=== PATIENT | female | born 1985 | race American Indian/Alaskan Native ===

== ENCOUNTER 2016-11-01 06:33 | Observation (INO) | payer MEDICAID ==
--- NOTE | 2016-10-30 13:51 | Anesthesia Consultation ---
Anesthesia Consult and Med Hx Date of service: 11/01/16 - Airway Anesthetic Teeth Evaluation: Good ROM Head & Neck: Adequate Mental/Hyoid Distance: Adequate Mallampati Class: Class IV (large tongue, small mouth opening) Intubation Access Assessment: Possibly Difficult - Pulmonary Exam CTA: Yes - Cardiac Exam Cardiac Exam: RRR - Pre-Operative Health Status ASA Pre-Surgery Classification: ASA3 Proposed Anesthetic Plan: General - Pulmonary Hx Asthma: No COPD: No Hx Pneumonia: No - Cardiovascular System Hx Hypertension: Yes (x 2 yrs) - Central Nervous System Hx Seizures: No Hx Psychiatric Problems: Yes - Endocrine Hx Renal Disease: No Hx End Stage Renal Disease: No Hx Non-Insulin Dependent Diabetes: Yes Hx Hypothyroidism: No Hx Hyperthyroidism: No - Hematic Hx Anemia: Yes Hx Sickle Cell Disease: No - Other Systems Hx Alcohol Use: No Hx Cancer: No Hx Obesity: Yes (morbid obesity)
[2016-10-30 14:06] LABS: Basophils % (Auto) 0.3 % (0.0-1.8); Eosinophils % (Auto) 0.7 % (0.0-4.3); Hematocrit 26.2 % (30.3-42.9); Hemoglobin 7.9 gm/dl (10.1-14.3); Mean Corpuscular HGB Conc 30 % (30-34); Mean Corpuscular Volume 73 fl (79-97); Platelet Count 333 K/mm3 (140-440); Red Blood Count 3.57 M/mm3 (3.65-5.03); White Blood Count 6.6 K/mm3 (4.5-11.0)
[2016-10-30 14:10] LABS: Mean Corpuscular Hemoglobin 22 pg (28-32); Red Cell Distribution Width 23.3 % (13.2-15.2)
[2016-10-30 14:36] LABS: Anion Gap 16 mmol/L; BUN/Creatinine Ratio 8.33; Blood Urea Nitrogen 5 mg/dL (7-17); Calcium 8.6 mg/dL (8.4-10.2); Carbon Dioxide 24 mmol/L (22-30); Chloride 99.9 mmol/L (98-107); Glucose 211 mg/dL (65-100); Sodium 136 mmol/L (137-145)
--- NOTE | 2016-10-31 09:07 | Admit Criteria Form ---
Admission Criteria Documentation: AMBULATORY SURGERY EXCEPTION CRITERIA Ambulatory Surgery Exception Criteria ( Place 'X' for any and all applicable criteria): Surgery or procedure performed on ambulatory basis may require inpatient stay for[A] ANY ONE of the following(1)(2)(3)(4)(5)(6)(7)(8)(9): [X] I. A preoperative situation, condition, or finding that warrants inpatient stay as indicated by ANY ONE of the following: [] a) Inpatient care needed because of severity of a disease or condition rather than the surgery (eg, severe cardiac or respiratory disease, severe infection) (15) (16 ) (17) (18) [] b) Emergent procedure (eg, angioplasty for acute ischemia)(19) [] c) Complex surgical approach or situation as indicated by ANY ONE of the following(3): [] i) Open approach needed instead of usual endoscopic, transcatheter, or other less invasive procedure [] ii) Difficult approach because of previous operation [] iii) Airway monitoring required after open neck procedures(20)(21) [] iv) Large mass requiring unusually extensive dissection [] v) Additional complicating feature requiring inpatient care (eg, drain management)(22(23): [X] d) Major surgery in a pt with high anesthetic risk as indicated by ANY ONE of the following (2)(3)(5)(7)(8): [X] i) ASA risk class III or higher (severe systemic disease impairing function) [D] [] ii) Advanced age (eg, older than 85 years)(14)(24) [] iii) Symptomatic heart failure(25) [] iv) Symptomatic asthma or COPD(8)(21) [] v) Morbid obesity with hemodynamic or respiratory problems(20)( 21)(26)(27) [] vi) Obstructive sleep apnea(20)(21) [] vii) Former premature infants who are younger than 60 weeks [] viii) High risk for severe postoperative abnormalities (eg, severe postoperative hypocalcemia after parathyroidectomy for severe hyperparathyroidism)(27)( 28) [] ix) Unstable angina(25) [] e) Drug-related risk requiring inpatient stay as indicated by ANY ONE of the following(5)(10)(14)(32)(33) [] i) Procedure requires discontinuing drugs or other therapy (eg , antiarrhythmic medication, antiseizure medication), which necessitates inpatient observation or treatment.(18)(31) [] ii) Major surgery and high risk drug use as indicated by ANY ONE of the following: [] 1) Active abuse of cocaine or similar drug [] 2) Monoamine oxidase inhibitor use [] 3) Other drug identified as posing risk [] f) Inadequate outpatient care situation as indicated by ANY ONE of the following(5)(10)(14)(32)(33) [] i) Patient lives remote from medical facility and procedure has urgent complication potential, and temporary nearby residence cannot be arranged [] ii) Patient will have postprocedure incapacitation and inadequate assistance at home, or alternative level of care cannot be arranged. [] iii) Patient will have long general anesthesia or procedure side effect resolution time, and competent person to stay with patient on first postoperative night at home or alternative level of care cannot be arranged. []iv) Other inadequate outpatient situation that cannot be handled by other means [] II. A perioperative event, condition, or finding that warrants inpatient stay as indicated by ANY ONE of the following (1)(2)(3): [] a) Inadequate physiologic recovery: cardiovascular, respiratory, or hemodynamic status not normal or near preoperative baseline(18) [] b) Hemodynamic instability [] c) Patient not alert with near normal or baseline mental status [] d) Temperature not normal or as expected and not appropriate for outpatient treatment of condition [] e) Ambulatory or appropriate activity level status not yet achieved post procedure [E](34)(35)(36) [] f) Operative site not appropriate (eg, unexpected or excessive drainage or bleeding) [] g) Postoperative effects not resolved or adequately managed (eg, significant pain or vomiting not appropriate for outpatient or next level of care)(10)(12) [] h) Complicating features requiring inpatient care as indicated by ANY ONE of the following(37): [] i) Severe complications of procedure (eg, bowel injury, airway compromise, vascular injury,severe hemorrhage) [] ii) Extensive (eg, dissection far beyond usual scope of procedure ) or prolonged (eg, 120 minutes beyond usual) surgery needed requiring inpatient postoperative care [] iii) Conversion to an open or complex procedure that requires inpatient care (eg, open vs laparoscopic cholecystectomy, abdominal vs vaginal hysterectomy)(38) [] iv) Comorbid condition or test result identified during or post procedure that requires inpatient care (7) [] v) Malignant hyperthermia(30) [] vi) Other complicating feature requiring inpatient care(22)(23) Inpatient stay may be needed until ALL of the following are present (1)(2)(3)(4) (5)(6)(10)(14)(33)(40): []a) Physiologic recovery: cardiovascular, respiratory, and hemodynamic status normal or near preoperative baseline []b) Hemodynamic stability []c) Patient alert, with near normal or baseline mental status []d) Temperature appropriate: patient afebrile or temperature appropriate for outpt treatment of condition []e) Activity level appropriate: ambulatory or appropriate activity level post procedure []f) Operative site appropriate as indicated by ALL of the following: []i) Site dry or with expected drainage []ii) Any blood noted is as expected for procedure. []g) Postoperative effects resolved or managed as indicated by ALL of the following: []i) Pain management appropriate for outpatient (or next level of) care(10) []ii) Minimal nausea and vomiting: if present, successfully treated with oral medication(12) []iii) Headache, dizziness, or drowsiness (if present) are mild. []h) Voiding status acceptable as indicated by ANY ONE of the following: []i) Voiding spontaneously []ii) No voiding but instructions given for follow-up in 6 to 8 hours []iii) Urinary catheter in place, and instructions given for follow-up []i) Complicating features requiring inpatient care manageable at a lower level of care(37) []j) Comorbid conditions manageable at a lower level of care(37) The original [employer] content created by [employer] has been revised. The portions of the content which have been revised are identified through the use of italic text or in bold, and [facility] [employer] has neither reviewed nor approved the modified material. All other unmodified content is copyright [employer]. Please see references footnoted in the original [employer] edition 2016 Admission Criteria Met: Yes
--- NOTE | 2016-10-31 22:33 | History and Physical Report ---
History of Present Illness Date of examination: 10/30/16 Chief complaint: Dysfunctional uterine bleeding History of present illness: Pt is a 31 year old -I[place] female presents for definitive management of dysfunctional uterine bleeding for the past two years that has failed medical management. It has also caused her to have symptomatic anemia which required 2 units of packed red blood cells preoperatively. Past History Past Medical History: hypertension, diabetes, other (obesity) Past Surgical History: section (2013), D&C ADJUTANT GENERAL History: herpes Family/Genetic History: none Social history: no significant social history, - Obstetrical History : 9 Medications and Allergies Allergies Allergy/AdvReac Type Severity Reaction Status Date / Time iron dextran complex Allergy Severe Anaphylaxis Verified 10/27/16 08:58 morphine Allergy Severe Itching Verified 10/31/16 14:27 Home Medications Medication Instructions Recorded Confirmed Last Taken Type Clonidine HCl [Clonidine HCl] 0.2 mg PO BID 10/27/16 10/27/16 Unknown History Norgestimate-Ethinyl Estradiol 1 tab PO DAILY 10/27/16 10/27/16 Unknown History [Sprintec 28 Day Tablet] Paroxetine HCl [PARoxetine] 40 mg PO DAILY 10/27/16 10/27/16 Unknown History glipiZIDE [Glipizide] 10 mg PO DAILY 10/27/16 10/27/16 Unknown History Active Meds: Active Medications Famotidine (Pepcid) 20 mg IV PREOP NR Stop: 11/01/16 23:59 Sodium Chloride (Nacl 0.9% 1000 Ml) 1,000 mls @ 75 mls/hr IV DIRECT LEONIDES Cefazolin Sodium (Ancef/Sterile Water 2 Gm/20 Ml) 20 mls @ 80 mls/hr IV PREOP LEONIDES PRN Reason: Protocol Midazolam HCl (Versed) 2 mg IV PREOP NR Stop: 11/01/16 23:59 Review of Systems All systems: negative - Vital Signs Vital signs: Vital Signs Temp Pulse Resp BP 97.9 F 80 14 148/88 10/30/16 13:25 10/30/16 13:25 10/30/16 13:25 10/30/16 13:25 Temp Pulse Resp BP Pulse Ox 98.5 F 73 18 188/100 100 10/31/16 18:05 10/31/16 18:05 10/31/16 18:05 10/31/16 18:05 10/31/16 18:05 - Physical Exam Breasts: Positive: deferred Cardiovascular: Regular rate Lungs: Positive: Clear to auscultation Abdomen: Positive: soft (obese) Extremities: Positive: normal Results Result Diagrams: 10/30/16 13:34 10/30/16 13:34 Abnormal lab results 10/30/16 Range/Units 13:34 Crossmatch See Detail All other labs normal. Ultrasound: other (09/19/16- Uterus 12.3x7.2x7.1 cm. Anteverted. Myometrium homogenous. Left ovary not identifiable. Right ovary 3.7x1.9x3.2 cm. No significant or abnormal fluid collections.) Assessment and Plan A: Dysfunctional uterine bleeding Symptomatic anemia - Hemoglobin 7.9 Previous x 1 Diabetes Hypertension Obesity P: Preoperative transfusion of 2 units of packed red blood cells with repeat CBC Proceed with laparoscopic-assisted vaginal hysterectomy, possible bilateral salpingo- oophorectomy and other indicated procedures.
[~2016-11-01 06:33] MED LIST: NACL 0.9% 250ML 250 ML IV ONE; NACL 0.9% 250ML 250 ML ONE; NACL 0.9% 500 ML 500 ML IV ONE; PEPCID IV NR; VERSED IV NR
[2016-11-01] MEDS ORDERED: NACL BACTERIOSTATIC INFILTRATI ONE (06:55)
[2016-11-01] MEDS ORDERED: ANCEF/STERILE WATER 2 GM/20 ML 2 GM/20 ML SYRINGE IV SCH ×2 (07:00→08:00)
[2016-11-01] MEDS: NACL 0.9% 1000 ML 1,000 ML IV SCH ×2 (07:15→23:50)
[2016-11-01 07:29] LABS: Basophils % (Auto) 0.4 % (0.0-1.8); Eosinophils % (Auto) 1.1 % (0.0-4.3); Mean Corpuscular HGB Conc 31 % (30-34); Mean Corpuscular Volume 75 fl (79-97); Platelet Count 283 K/mm3 (140-440); Red Blood Count 4.26 M/mm3 (3.65-5.03); White Blood Count 7.6 K/mm3 (4.5-11.0)
[2016-11-01 07:36] LABS: Mean Corpuscular Hemoglobin 24 pg (28-32); Red Cell Distribution Width 23.9 % (13.2-15.2)
[2016-11-01] MEDS ORDERED: SUBLIMAZE ONE (07:59)
[2016-11-01] MEDS ORDERED: DIPRIVAN 10 MG/ML IV ONE (07:59)
[2016-11-01] MEDS ORDERED: ZEMURON IV ONE ×2 (08:01→09:58)
[2016-11-01] MEDS ORDERED: XYLOCAINE MPF 2% ONE (08:01)
[2016-11-01] MEDS ORDERED: NEO SYNEPHRINE ONE (08:56)
[2016-11-01] MEDS ORDERED: NACL 0.9% 100 ML ONE (08:56)
[2016-11-01] MEDS ORDERED: DILAUDID ONE ×2 (09:02→11:49)
[2016-11-01] MEDS ORDERED: ZOFRAN ONE (09:05)
[2016-11-01] MEDS ORDERED: ROBINUL ONE ×3 (09:05→11:24)
[2016-11-01] MEDS ORDERED: BREVIBLOC IV ONE (09:08)
[2016-11-01] MEDS ORDERED: NORMODYNE IV ONE (09:08)
--- NOTE | 2016-11-01 09:39 | Anesthesia Day of Surgery ---
Anesthesia Day of Surgery - Day of Surgery Patient Examined: Yes Patient H&P Reviewed: Yes Patient is NPO: Yes
[2016-11-01] MEDS ORDERED: ZOFRAN IV PRN ×3 (09:40→15:01)
[2016-11-01] MEDS ORDERED: NACL 0.9% 1000 ML 1,000 ML ONE (09:48)
[2016-11-01] MEDS ORDERED: NACL 0.9% 500 ML 500 ML IV ONE (10:44)
[2016-11-01] MEDS ORDERED: BLOXIVERZ ONE (11:24)
[2016-11-01] MEDS ORDERED: NACL 0.9% IR ONE ×2 (11:50)
[2016-11-01] MEDS ORDERED: MARCAINE 0.5% INFILTRATI ONE (11:50)
--- NOTE | 2016-11-01 12:08 | Post Operative Note ---
Pre-op diagnosis: Dysfunctional Uterine Bleeding Post-op diagnosis: same Findings: 1) 12-14 wks sized anteverted uterus 2) Normal appearing ovaries and tubes 3) Large omental adhesion extending to anterior peritoneum Procedure: 1) Laparoscopic-assisted vaginal hysterectomy, bilateral salpingectomy 2) Lysis of adhesions Anesthesia: ELZA Surgeon: MARCIN CASON Estimated blood loss: other (400 mL) Pathology: list (uterus, cervix, fallopian tubes) Specimen disposition: to lab Condition: stable Disposition: PACU
--- NOTE | 2016-11-01 12:10 | Operative Report ---
Operative Report Operative Report: Date of procedure: November 01, 2016 Preoperative Diagnosis: 1) Dysfunctional Uterine Bleeding causing symptomatic anemia 2)Obesity 3) Diabetes Postoperative diagnosis: Same Surgeon: Kadie Chaudhari MD Tool Room Machinist: Bridget Palafox MD Anesthesia: GETA Procedure: Laparoscopic-assisted vaginal hysterectomy, bilateral salpingectomy, Lysis of omental adhesion Findings: 1) 12-14 wk sized anteverted uterus 2) Normal appearing ovaries and fallopian tubes 3) Large omental adhesion extending to the anterior peritoneum at the level of the umbilicus EBL: 400 mL IVF: 1800 mL Urine output: 1000 mL, clear at the end of the procedure Specimen: Uterus, cervix and bilateral fallopian tubes to pathology Complications: None. Counts correct x 3 Drains: Alaniz to gravity Disposition: Stable to PACU Indication for procedure: Pt is a 31 year old -Somali female who presents for definitive management of dysfunctional uterine bleeding for the past two years that has failed medical management. Operation in detail: After the risks, benefits, alternatives and complications were explained to the patient, she gave informed consent for the procedure. She was subsequently taken to the operating room with her IV noted to be running well and placed in the dorsal supine position. SCDs were noted to be in place and functioning. General anesthesia was then induced without difficulty. The patient was then placed in the dorsal lithotomy position with Abilio stirrups. Exam under anesthesia revealed an anteverted 12 wk sized mobile uterus. The patient was then prepped and draped in a normal sterile fashion. A timeout was then performed. A alainz catheter was placed and the bladder was emptied. A bivalve speculum was placed into the vagina. A single-tooth tenaculum was then placed on the anterior lip of the cervix for traction. The uterus was sounded to 10 cm. Stay sutures were placed on either side of the cervix at the 3 o clock and 9 o clock positions. A large V-Care uterine manipulator was introduced without difficulty. A glove filled with a lap was placed into the vagina. The surgeon's gloves were changed. Two towel clamps were applied to the periumbilical skin for manual elevation of the abdomen. A small horizontal incision was made 4 cm above the umbilicus. A long Veress needle was introduced into the peritoneal cavity at a straight angle without difficulty. A saline drop test was performed to confirm intraperitoneal placement. Pneumoperitoneum was established with carbon dioxide gas to a pressure of 15 mm Hg. A 10 mm trocar was inserted into the abdomen under direct visualization. Intraabominal placement was confirmed with the laparoscope. An intraabdominal survey revealed pelvic anatomy was as noted above. Two 10 mm trocars were inserted in the bilateral lower quadrants 8 cm from the midline under direct laparoscopic visualization. Trendelenberg position was obtained to facilitate movement of the bowel and omentum out of the pelvis. A large omental adhesion was lysed using the Ligasure device, for a 15 minute duration. Subsequently, the uterus was elevated from the pelvis with a uterine manipulator. Using a 10 mm Ligasure device, the fallopian tubes were bilaterally excised. Next, the broad, utero-ovarian and round ligaments on the right side were sequentially transected with the Ligasure device until the uterine artery was exposed. The same procedure was repeated on the left side. The vesico-uterine peritoneum was opened with monopolar scissors and the bladder was dissected off the lower uterine segment and upper vagina. With the V -Care pushing into the pelvis, the cervico-vaginal junction was delineated by the colpotomy ring, which was apparent through the tissue.During the vaginal dissection there was heavy bleeding from the vaginal vessels that was controlled with a combination of the Ligasure and monopolar coagulation. The vagina was entered posteriorly with the monopolar scissors and incised circumferentially along the cervico-vaginal junction. The uterus was then delivered through the vagina and sent to pathology. Attention was then turned to the vaginal portion of the case. The patient was placed in high dorsal lithotomy position. The vaginal cuff was grasped with Allis clamps then reapproximated with running locked 0-Vicryl suture. A moist vaginal pack was placed. The surgeon's gloves were changed. The pnuemoperitoneum was reestablished and the pelvis was inspected with no active bleeding noted. Yudelka AH was then sprayed over all pedicles. All instruments were removed from the abdomen. The fascial defects of the three trocar sites were closed with a Noah-Moon device using 0-Vicryl. All three skin incisions were injected with 0.5% Marcaine then reapproximated with 4 -0 Vicryl in a subcuticular fashion. The incisions were then covered with steri- strips, telfa and tegaderm dressings. At this time the procedure was ended. The patient was returned to the dorsal supine position and extubated without difficulty. She was subsequently taken to the PACU in stable condition. All counts were correct x 3.
[2016-11-01] MEDS: DILAUDID IV PRN ×4 (12:20→13:30)
[2016-11-01] MEDS ORDERED: TORADOL ONE (13:00)
[2016-11-01] MEDS ORDERED: DILAUDID PCA 6MG/30ML IV ONE (13:04)
--- NOTE | 2016-11-01 14:48 | Post Anesthesia Evaluation ---
- Post Anesthesia Evaluation Patient Participated: Yes Airway Patent: Yes Stable Respiratory Function: Yes Nausea/Vomiting: No Temp > 96.8F: Yes Pain Manageable: Yes Adequeate Hydration: Yes Anesthesia Complications: No Block Receding Appropriately: Not Applicable Patient on Ventilator: No
[2016-11-01] MEDS ORDERED: DILAUDID PCA 6MG/30ML IV SCH (15:01)
[2016-11-01] MEDS ORDERED: NARCAN 0.4 MG/1 ML IV PRN ×2 (15:01)
[2016-11-01] MEDS ORDERED: BENADRYL IV PRN (15:01)
[2016-11-01] MEDS ORDERED: PERCOCET 5/325 PO PRN (15:01)
[2016-11-01] MEDS ORDERED: BENADRYL PO PRN (15:01)
[2016-11-01] MEDS ORDERED: D50W (25GM) IV PRN (15:01)
[2016-11-01] MEDS: ANCEF/NS 1 GM/50 ML 1 GM/50 ML BAG IV SCH (17:35)
[2016-11-01] MEDS: TORADOL IV SCH ×2 (17:35→23:30)
[2016-11-02] MEDS: ANCEF/NS 1 GM/50 ML 1 GM/50 ML BAG IV SCH (01:30)
[2016-11-02] MEDS: TORADOL IV SCH (05:25)
[2016-11-02 06:50] LABS: Hemoglobin 8.3 gm/dl (10.1-14.3)
[2016-11-02 07:07] LABS: Anion Gap 18 mmol/L; Blood Urea Nitrogen 3 mg/dL (7-17); Carbon Dioxide 21 mmol/L (22-30); Chloride 105.1 mmol/L (98-107); Glucose 180 mg/dL (65-100); Potassium 3.4 mmol/L (3.6-5.0); Sodium 141 mmol/L (137-145)
--- NOTE | 2016-11-02 08:34 | Progress Note ---
Assessment and Plan A: POD#1 s/p LAVH/Bilateral salpingectomy Symptomatic anemia s/p 2 units of PRBCs preop P: Routine postoperative care. Subjective - Subjective Date of service: 11/02/16 Principal diagnosis: s/p LAVH/bilateral salpingectomy, Anemia Interval history: No overnight issues. Patient reports: no voiding normally (alaniz just removed), no flatus, no bowel movement, no ambulating normally (SCDs removed this morning ), no nauseated Objective - Vital Signs Latest vital signs: Vital Signs Temp Pulse Pulse Pulse Resp BP BP 11/02/16 05:30 20 11/02/16 05:00 98.1 F 80 20 143/70 11/02/16 00:00 98.2 F 91 H 20 136/72 11/01/16 23:30 20 11/01/16 21:35 18 11/01/16 20:14 20 11/01/16 20:00 98.2 F 77 20 133/73 11/01/16 18:00 97.4 F L 70 18 137/57 11/01/16 17:34 98.2 F 88 88 20 128/78 11/01/16 14:30 98 F 91 H 87 20 93/40 107/61 11/01/16 14:15 88 19 96/57 11/01/16 14:00 90 18 93/48 11/01/16 13:45 92 H 17 104/49 11/01/16 13:30 91 H 17 105/49 11/01/16 13:15 96 H 18 98/45 11/01/16 13:00 89 19 112/64 11/01/16 12:45 99 H 14 117/60 11/01/16 12:25 85 14 124/73 11/01/16 12:20 84 14 137/76 11/01/16 12:15 87 14 140/83 11/01/16 12:10 98 F 93 H 16 147/82 Pulse Ox 11/02/16 05:30 11/02/16 05:00 11/02/16 00:00 11/01/16 23:30 11/01/16 21:35 11/01/16 20:14 11/01/16 20:00 11/01/16 18:00 11/01/16 17:34 11/01/16 14:30 99 11/01/16 14:15 99 11/01/16 14:00 99 11/01/16 13:45 99 11/01/16 13:30 99 11/01/16 13:15 100 11/01/16 13:00 98 11/01/16 12:45 98 11/01/16 12:25 100 11/01/16 12:20 100 11/01/16 12:15 100 11/01/16 12:10 100 Intake and Output 11/01/16 11/02/16 11/02/16 22:59 06:59 14:59 Intake Total 50 1240 Output Total 1900 Balance 50 -660 Intake: IV 50 1000 ANCEF/NS 1 GM/50 ML 1 gm 50 In 50 ml @ 100 mls/hr IV Q8H LEONIDES Rx#:[id number] NaCl 0.9% 1000 ml 1,000 1000 ml @ 75 mls/hr IV DIRECT LEONIDES Rx#:[id number] Oral 240 Output: Urine 1900 Indwelling Catheter 1900 Other: Total, Intake Amount 240 Total, Output Amount 900 Voiding Method Indwelling Catheter Indwelling Catheter - Exam Breasts: Present: deferred Cardiovascular: Present: Regular rate Lungs: Present: Clear to auscultation Abdomen: Present: soft (obese), abnormal bowel sounds (hypoactive bowel sounds ) Extremities: Present: normal Incision: Present: dressed - Labs Labs: Abnormal lab results 10/30/16 11/01/16 11/01/16 Range/Units 13:34 12:23 13:16 Hgb (10.1-14.3) gm/dl Hct (30.3-42.9) % Potassium (3.6-5.0) mmol/L Carbon Dioxide (22-30) mmol/L BUN (7-17) mg/dL Creatinine (0.7-1.2) mg/dL Glucose (65-100) mg/dL POC Glucose 265 H 261 H (70-105) Hemoglobin A1c (4-6) % Calcium (8.4-10.2) mg/dL Crossmatch See Detail 11/01/16 11/01/16 11/01/16 Range/Units 14:32 17:09 21:38 Hgb (10.1-14.3) gm/dl Hct (30.3-42.9) % Potassium (3.6-5.0) mmol/L Carbon Dioxide (22-30) mmol/L BUN (7-17) mg/dL Creatinine (0.7-1.2) mg/dL Glucose (65-100) mg/dL POC Glucose 240 H 247 H 195 H (70-105) Hemoglobin A1c (4-6) % Calcium (8.4-10.2) mg/dL Crossmatch 11/02/16 11/02/16 11/02/16 Range/Units 05:16 06:13 06:13 Hgb 8.3 L (10.1-14.3) gm/dl Hct 27.0 L (30.3-42.9) % Potassium 3.4 L (3.6-5.0) mmol/L Carbon Dioxide 21 L (22-30) mmol/L BUN 3 L (7-17) mg/dL Creatinine 0.5 L (0.7-1.2) mg/dL Glucose 180 H (65-100) mg/dL POC Glucose 173 H (70-105) Hemoglobin A1c (4-6) % Calcium 8.0 L (8.4-10.2) mg/dL Crossmatch 11/02/16 Range/Units 06:13 Hgb (10.1-14.3) gm/dl Hct (30.3-42.9) % Potassium (3.6-5.0) mmol/L Carbon Dioxide (22-30) mmol/L BUN (7-17) mg/dL Creatinine (0.7-1.2) mg/dL Glucose (65-100) mg/dL POC Glucose (70-105) Hemoglobin A1c 6.8 H (4-6) % Calcium (8.4-10.2) mg/dL Crossmatch
[2016-11-02] MEDS ORDERED: D50W (25GM) IV PRN (08:41)
[2016-11-02] MEDS ORDERED: DILAUDID IV PRN (09:00)
[2016-11-02] MEDS ORDERED: PAXIL PO SCH (10:00)
[2016-11-02] MEDS ORDERED: GLUCOTROL PO SCH (10:00)
[2016-11-02] MEDS: MILK OF MAGNESIA PO SCH ×2 (10:43→14:50)
--- NOTE | 2016-11-02 13:17 | Event Note ---
Date: 11/02/16 Pt has passed flatus, is tolerating a regular diet and urinating without difficulty. She is also ambulating. She requests discharge home today.
--- NOTE | 2016-11-02 13:21 | Discharge Summary ---
Providers - Providers Date of Admission: 11/01/16 13:16 Date of discharge: 11/02/16 Attending physician: MARCIN CASON Primary care physician: CHIQUIS RODRIGUEZ Hospitalization Reason for admission: other (Hysterectomy) Procedure details: Please see operative note. Incision: intact Hospital course: Pt underwent hysterectomy which she tolerated well. She was transfused two units of blood preoperatively. Her postoperative course was uncomplicated and she met discharge criteria on POD#1. Disposition: DISCHARGED TO HOME OR SELFCARE - Discharge Diagnoses (1) Dysfunctional uterine bleeding Status: Acute (2) Obesity (BMI 30-39.9) Status: Acute (3) Diabetes Status: Acute Qualifiers: Diabetes mellitus type: type 2 Diabetes mellitus complication status: without complication Diabetes mellitus complication detail: D Diabetic retinopathy severity: D Proliferative retinopathy type: P Diabetes mellitus macular edema: D Diabetes mellitus fpc insulin use: D Laterality: L Chronic kidney disease stage: C (4) Hypertension Status: Acute Qualifiers: Hypertension type: H Plan - Discharge Medications Prescriptions: Ferrous Sulfate [Feosol 325 MG tab] 325 mg PO BID #60 tablet Ibuprofen [Motrin] 800 mg PO Q8HR PRN #30 tablet PRN Reason: Pain NIFEdipine XL [Procardia Xl] 30 mg PO QDAY #30 tablet oxyCODONE /ACETAMINOPHEN [Percocet 5/325] 1 tab PO Q6HR PRN #30 tablet PRN Reason: Pain - Provider Discharge Summary Activity: no sex for 6 weeks, no heavy lifting 4 weeks, no strenuous exercise Diet: routine Instructions: routine Additional instructions: [] Smoking cessation referral if applicable(refer to patient education folder for contact #) [] Refer to [facility]'s [facility] Booklet Call your doctor immediately for: * Fever > 100.5 * Heavy vaginal bleeding ( >1 pad per hour) * Severe persistent headache * Shortness of breath * Reddened, hot, painful area to leg or breast * Drainage or odor from incision. * Keep incision clean and dry at all times and follow doctor's instructions regarding bathing/showering - Follow up plan Follow up: MARCIN CASON MD [Staff Physician] - 11/15/16 (incision check)
[2016-11-02 18:04] VITALS: BP 161/95
== END 2016-11-02 18:25 | disposition home or self-care (01) ==
LOC: OR 06:33 → OB 13:16 → INTOOBSV 13:16
PROVIDERS: ADMIT Obstetrics & Gynecology; ATTEND Obstetrics & Gynecology
DX: N93.8 Other specified abnormal uterine and vaginal bleeding (principal); E66.9 Obesity, unspecified; E11.9 Type 2 diabetes mellitus without complications; I10 Essential (primary) hypertension
CPT/HCPCS: 36415; 36430; 80048; 82962; 83036; 84703; 85014; 85018; 85025; 86850; 86870; 86900; 86901; 86922; 88305; 88307; 96365; 96372; 96375; 96376; A4217; G0378; J0690; J1170; J1885; J2250; J2370; J2405; J2704; J2710; J3010; J7030; J7050; P9016; 86920; J1815

== ENCOUNTER 2018-05-21 17:48 | Emergency (ER) | payer SELFPAY ==
[2018-05-21 18:01] VITALS: BP 154/103
[2018-05-21] MEDS ORDERED: ULTRAM PO ONE (22:09)
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
== END 2018-05-21 22:56 | disposition home or self-care (01) ==
LOC: ED 17:48
DX: F41.9 Anxiety disorder, unspecified (principal); I10 Essential (primary) hypertension; E11.9 Type 2 diabetes mellitus without complications; Z90.711 Acquired absence of uterus with remaining cervical stump; Z79.84 Long term (current) use of oral hypoglycemic drugs; Z91.041 Radiographic dye allergy status; Z88.6 Allergy status to analgesic agent; Z88.9 Allergy status to unspecified drugs, medicaments and biological substances
CPT/HCPCS: 99282